=== PATIENT | male | born 1950 | race Caucasian/White ===

== ENCOUNTER 2018-02-07 15:56 | Outpatient (CLI) | payer MEDICARE ==
[2018-02-07 16:16] LABS: TOTAL HEMOGLOBIN 15.8 G/dl (14.0-18.0)
== END 2018-02-07 23:59 | disposition home or self-care (01) ==
LOC: RT 15:56
PROVIDERS: ATTEND Internal Medicine Pulmonary Disease
DX: J44.9 Chronic obstructive pulmonary disease, unspecified (principal)
CPT/HCPCS: 85018; 94010; 94727; 94729